=== PATIENT | male | born 1995 | race Caucasian/White ===

== ENCOUNTER → 2017-10-10 | Outpatient (CLI) | payer OTHER ==
[2017-10-10 16:26] LABS: EOS # 0.2 (0.04-0.40); EOS % 3.4 % (0.0-4.0); HEMATOCRIT 46.7 % (42.0-52.0); HEMOGLOBIN 15.8 g/dL (13.5-18.0); LYMPH# 1.3 (1.50-4.00); MEAN CELL VOLUME 94 fl (78-100); MEAN CORPUSCULAR HEMOGLOBIN 32 pg (27-31); MEAN CORPUSCULAR HGB CONC 34 g/dL (33-37); MEAN PLATELET VOLUME 10.6 fl (7.4-10.4); MONO # 0.7 (0.20-0.80); NEU # 4.3 (1.40-6.50); PLATELET COUNT 259 K/mm3 (130-400); RED BLOOD COUNT 4.96 M/mm3 (4.20-5.60); RED CELL DISTRIBUTION WIDTH 12.4 % (11.5-14.5); WHITE BLOOD COUNT 6.5 K/mm3 (4.8-10.8)
[2017-10-10 16:57] LABS: ALBUMIN 4.9 g/dL (3.5-5.0); BUN/CREATININE RATIO 22.6 (6.0-26.0); POTASSIUM 4.6 mmol/L (3.6-5.0); TOTAL BILIRUBIN 0.7 mg/dL (0.2-1.3); TOTAL PROTEIN 8.3 g/dL (6.3-8.2)
== END ==
LOC: LAB 15:29
PROVIDERS: Nurse Practitioner Primary Care
DX: R51 Headache (principal)

== ENCOUNTER → 2018-10-07 | Outpatient (CLI) | payer OTHER | LOC: RAD 08:28 | DX: R22.41 Localized swelling, mass and lump, right lower limb (principal) ==

== ENCOUNTER 2019-04-25 15:46 | Observation (INO) | payer OTHER ==
[~2019-04-25] VITALS: Ht 165.1 cm; Wt 100.0 kg
[2019-04-25] MEDS ORDERED: TRAMADOL 50 MG TAB PO (16:04)
[2019-04-25] MEDS ORDERED: ALPRAZOLAM1 MG PO (16:04)
[2019-04-25] MEDS ORDERED: CIPROFLOXACIN OP (16:04)
[2019-04-25 16:31] LABS: HEMATOCRIT 44.1 % (42.0-52.0); HEMOGLOBIN 15.3 g/dL (13.5-18.0); MEAN CELL VOLUME 92 fl (78-100); MEAN CORPUSCULAR HEMOGLOBIN 32 pg (27-31); MEAN CORPUSCULAR HGB CONC 35 g/dL (33-37); PLATELET COUNT 328 K/mm3 (130-400); RED BLOOD COUNT 4.79 M/mm3 (4.20-5.60); RED CELL DISTRIBUTION WIDTH 12.9 % (11.5-14.5); WHITE BLOOD COUNT 12.2 K/mm3 (4.8-10.8)
[2019-04-25 16:44] LABS: LYMPHOCYTE 26 % (20-51); MONOCYTE 7 % (3-10); NEUTROPHILS 66 % (42-75)
[2019-04-25 16:50] LABS: ALBUMIN 4.7 g/dL (3.5-5.0); CALCIUM 9.8 mg/dL (8.3-10.5); POTASSIUM 3.9 mmol/L (3.5-5.1); TOTAL BILIRUBIN 0.5 mg/dL (0.2-1.2); TOTAL PROTEIN 7.8 g/dL (6.4-8.3)
[2019-04-25 18:58] VITALS: BP 166/103
[2019-04-25] MEDS ORDERED: SYMBICORT1 AE2 IH (19:17)
[2019-04-25 19:38] VITALS: BP 153/97
[2019-04-25 23:26] VITALS: BP 143/82
[2019-04-26 02:52] VITALS: BP 133/85
[2019-04-26 06:12] VITALS: BP 135/79
[2019-04-26 06:53] LABS: CALCIUM 9.1 mg/dL (8.3-10.5); POTASSIUM 4.1 mmol/L (3.5-5.1)
[2019-04-26] MEDS ORDERED: ACETAMINOPHEN-H1 TA2 PO (08:18)
== END 2019-04-26 09:38 | disposition home or self-care (01) ==
LOC: ED 15:46 → MED/SURG 18:19
PROVIDERS: ADMIT Physician Assistant
DX: T23.202A Burn of second degree of left hand, unspecified site, initial encounter (principal); T23.201A Burn of second degree of right hand, unspecified site, initial encounter; T20.10XA Burn of first degree of head, face, and neck, unspecified site, initial encounter; F41.9 Anxiety disorder, unspecified; J45.909 Unspecified asthma, uncomplicated
CPT/HCPCS: 90714; G0378; J2060; J2270; J3010; J7030; J7120

== ENCOUNTER 2019-05-10 11:12 | Emergency (ER) | payer OTHER ==
[~2019-05-10 11:12] MED LIST: ACETAMINOPHEN-H1 TA2 PO; ALPRAZOLAM1 MG PO; CIPROFLOXACIN OP; SYMBICORT1 AE2 IH; TRAMADOL 50 MG TAB PO
[2019-05-10 11:44] LABS: BASO # 0.1 (0.02-0.10); EOS # 0.3 (0.04-0.40); HEMATOCRIT 43.4 % (42.0-52.0); HEMOGLOBIN 14.9 g/dL (13.5-18.0); LYMPH# 2.8 (1.50-4.00); MEAN CELL VOLUME 93 fl (78-100); MEAN CORPUSCULAR HEMOGLOBIN 32 pg (27-31); MEAN CORPUSCULAR HGB CONC 34 g/dL (33-37); MEAN PLATELET VOLUME 9.7 fl (7.4-10.4); MONO # 1.3 (0.20-0.80); NEU # 6.7 (1.40-6.50); PLATELET COUNT 304 K/mm3 (130-400); RED BLOOD COUNT 4.68 M/mm3 (4.20-5.60); RED CELL DISTRIBUTION WIDTH 12.4 % (11.5-14.5); WHITE BLOOD COUNT 11.3 K/mm3 (4.8-10.8)
[2019-05-10 12:04] LABS: ALBUMIN 4.3 g/dL (3.5-5.0); CALCIUM 9.5 mg/dL (8.3-10.5); POTASSIUM 3.5 mmol/L (3.5-5.1); TOTAL BILIRUBIN 0.4 mg/dL (0.2-1.2); TOTAL PROTEIN 7.2 g/dL (6.4-8.3)
[2019-05-10 13:13] VITALS: BP 195/92
== END 2019-05-10 12:57 | disposition short-term general hospital (02) ==
LOC: ED 11:12
PROVIDERS: Nurse Practitioner Primary Care
DX: S62.633B Displaced fracture of distal phalanx of left middle finger, initial encounter for open fracture (principal); S61.317A Laceration without foreign body of left little finger with damage to nail, initial encounter; S61.315A Laceration without foreign body of left ring finger with damage to nail, initial encounter; W31.9XXA Contact with unspecified machinery, initial encounter; Y92.69 Other specified industrial and construction area as the place of occurrence of the external cause; Y99.0 Civilian activity done for income or pay
CPT/HCPCS: A4216; J0690; J2270; J2405; J7030

== ENCOUNTER → 2021-11-17 | Outpatient (CLI) | payer OTHER ==
[2021-11-17 09:13] LABS: BASO # 0.06 K/mm3 (0.02-0.10); EOS % 1.7 % (0.0-4.0); HEMATOCRIT 46.6 % (42.0-52.0); HEMOGLOBIN 15.9 g/dL (13.5-18.0); LYMPH# 2.16 K/mm3 (1.50-4.00); MEAN CELL VOLUME 97 fl (78-100); MEAN CORPUSCULAR HEMOGLOBIN 33 pg (27-31); MEAN CORPUSCULAR HGB CONC 34 g/dL (33-37); MEAN PLATELET VOLUME 9.4 fl (7.4-10.4); MONO # 1.42 K/mm3 (0.20-0.80); NEU # 8.14 K/mm3 (1.40-6.50); PLATELET COUNT 300 K/mm3 (130-400); RED BLOOD COUNT 4.82 M/mm3 (4.20-5.60); RED CELL DISTRIBUTION WIDTH 12.7 % (11.5-14.5)
[2021-11-17 09:25] LABS: ALBUMIN 4.6 g/dL (3.5-5.0)
[2021-11-17 09:26] LABS: CALCIUM 9.7 mg/dL (8.3-10.5)
[2021-11-17 09:27] LABS: TOTAL PROTEIN 8.2 g/dL (6.4-8.3)
[2021-11-17 09:29] LABS: TOTAL BILIRUBIN 0.5 mg/dL (0.2-1.2)
== END ==
LOC: LAB 09:00
PROVIDERS: Family Medicine
DX: Z00.00 Encounter for general adult medical examination without abnormal findings (principal); E78.5 Hyperlipidemia, unspecified

== ENCOUNTER → 2024-11-05 | Outpatient (CLI) | payer OTHER ==
[~2024-11-05] MED LIST changes: +PROAIR HFA0.09 MG/AC IH; +SIMVASTATIN20 M1 PO
[2024-11-05 13:07] LABS: BASO # 0.06 K/mm3 (0.02-0.10); EOS # 0.34 K/mm3 (0.04-0.40); EOS % 3.8 % (0.0-4.0); HEMATOCRIT 51.1 % (42.0-52.0); HEMOGLOBIN 17.4 g/dL (13.5-18.0); LYMPH# 2.04 K/mm3 (1.50-4.00); MEAN CELL VOLUME 96 fl (78-100); MEAN CORPUSCULAR HEMOGLOBIN 33 pg (27-31); MEAN CORPUSCULAR HGB CONC 34 g/dL (33-37); MEAN PLATELET VOLUME 9.7 fl (7.4-10.4); MONO # 0.99 K/mm3 (0.20-0.80); NEU # 5.39 K/mm3 (1.40-6.50); PLATELET COUNT 305 K/mm3 (130-400); RED BLOOD COUNT 5.32 M/mm3 (4.20-5.60); RED CELL DISTRIBUTION WIDTH 12.6 % (11.5-14.5); WHITE BLOOD COUNT 8.9 K/mm3 (4.8-10.8)
[2024-11-05 13:15] LABS: ALBUMIN 4.7 g/dL (3.5-5.0)
[2024-11-05 13:19] LABS: TOTAL BILIRUBIN 0.6 mg/dL (0.2-1.2)
== END ==
LOC: LAB 12:46
PROVIDERS: Family Medicine
DX: I10 Essential (primary) hypertension (principal); E78.5 Hyperlipidemia, unspecified